=== PATIENT | male | born 1975 | race Caucasian/White ===

== ENCOUNTER 2020-07-20 17:11 | Emergency (ER) | payer MEDICAID, OTHER ==
--- NOTE | 2020-07-20 18:26 | EDM.PDOC ---
ED HPI GENERAL MEDICAL PROBLEM - General Chief Complaint: Abdominal Pain Stated Complaint: STOMACH PAIN Time Seen by Provider: 07/20/20 18:00 Source of Information: Reports: Patient History Limitations: Reports: No Limitations - History of Present Illness INITIAL COMMENTS - FREE TEXT/NARRATIVE: 44 yo male here with a hx of intermittent epigastric pain over the past couple of years. He had pain today before coming to the ER, but it is gone shortly after arrival. He took omeprazole this morning without relief. No antacids taken. He has had scattered work ups by a GI doctor in [place], and an ER doctor in [place]. He lives in [place] and has no primary care provider. Has a pHx of binge drinking, not lately. He is on a keto diet and has lost about 60#. Had a recent endoscopy in [place] that did not show anything. Is not sure of other tests that have been done, but doesn't think he's had a HIDA scan. Onset: Gradual Onset Date: 07/19/20 Duration: Day(s): (1+), Resolved Prior to Arrival Location: Reports: Abdomen Quality: Reports: Pressure Severity: Moderate Improves with: Reports: Other (time) Worsens with: Reports: Other (unknown) Context: Reports: Other (See HPI) Associated Symptoms: Reports: Nausea/Vomiting. Denies: Fever/Chills Treatments [employer]: Reports: Other (see below) (see HPI) Epigastric Pain Score (Numeric/FACES): 5 - Related Data Allergies Allergy/AdvReac Type Severity Reaction Status Date / Time No Known Allergies Allergy Verified 07/20/20 17:42 Home Meds: Home Meds Losartan Potassium 100 mg PO DAILY 07/20/20 [History] Varenicline [Chantix] 1 mg PO ASDIRECTED 07/20/20 [History] Past Medical History Musculoskeletal History: Reports: Fracture - Infectious Disease History Infectious Disease History: Reports: Chicken Pox, Hepatitis C - Past Surgical History HEENT Surgical History: Reports: Eye Surgery Musculoskeletal Surgical History: Reports: Other (See Below) Other Musculoskeletal Surgeries/Procedures:: Back surgery. Jaw Surgery Social & Family History - Tobacco Use Tobacco Use Status *Q: Never Tobacco User - Caffeine Use Caffeine Use: Reports: Coffee - Recreational Drug Use Recreational Drug Type: Reports: Marijuana/Hashish ED ROS GENERAL - Review of Systems Review Of Systems: See Below Constitutional: Reports: No Symptoms HEENT: Reports: No Symptoms Respiratory: Reports: No Symptoms Cardiovascular: Reports: No Symptoms Endocrine: Reports: No Symptoms GI/Abdominal: Reports: Abdominal Pain, Nausea, Vomiting. Denies: Black Stool, Bloody Stool, Constipation, Diarrhea, Distension, Flatus, Hematemesis, Hematochezia, Melena : Reports: No Symptoms Musculoskeletal: Reports: No Symptoms Skin: Denies: No Symptoms ED EXAM, GI/ABD - Physical Exam Exam: See Below Exam Limited By: No Limitations General Appearance: Alert, WD/WN, No Apparent Distress Eyes: Bilateral: Normal Appearance Ears: Normal External Exam, Normal Canal Nose: Normal Inspection, No Blood Throat/Mouth: Normal Inspection, Normal Lips, Normal Oropharynx, Normal Voice, No Airway Compromise Head: Atraumatic, Normocephalic Neck: Normal Inspection Respiratory/Chest: No Respiratory Distress, Lungs Clear, Normal Breath Sounds, No Accessory Muscle Use Cardiovascular: Regular Rate, Rhythm, No Edema GI/Abdominal Exam: Normal Bowel Sounds, Soft, Non-Tender, No Distention. No: Distended Back Exam: Normal Inspection. No: CVA Tenderness (R), CVA Tenderness (L) Extremities: Normal Inspection, Normal Range of Motion, Non-Tender, No Pedal Edema Neurological: Alert, Oriented, CN II-XII Intact, Normal Cognition, No Motor/Sensory Deficits Psychiatric: Normal Affect, Normal Mood Skin Exam: Warm, Dry, Intact, Normal Color, No Rash Course - Vital Signs Last Recorded V/S: Last Vital Signs Temp 36.8 C 07/20/20 17:43 Pulse 108 H 07/20/20 17:43 Resp 16 07/20/20 17:43 BP 141/94 H 07/20/20 17:43 Pulse Ox 98 07/20/20 17:43 Departure - Departure Time of Disposition: 18:30 Disposition: Home, Self-Care 01 Condition: Good Clinical Impression: Intermittent epigastric abdominal pain - Discharge Information *PRESCRIPTION DRUG MONITORING PROGRAM REVIEWED*: Not Applicable *COPY OF PRESCRIPTION DRUG MONITORING REPORT IN PATIENT EM: Not Applicable Referrals: PCP,None [Primary Care Provider] - Additional Instructions: Return for a scheduled outpatient HIDA scan, or as needed. It would be helpful to get your medical records for us to review. Omeprazole and other PPI's don't work used PRN, need to be taken regularly. Sepsis Event Note (ED) - Evaluation Sepsis Screening Result: No Definite Risk - Focused Exam Vital Signs: Vital Signs Temp Pulse Resp BP Pulse Ox 07/20/20 17:43 36.8 C 108 H 16 141/94 H 98 07/20/20 17:32 36.8 C 108 H 16 141/94 H 98
== END 2020-07-20 18:26 | disposition home or self-care (01) ==
LOC: JP.ED 17:11
DX: R10.13 Epigastric pain (principal); Z79.899 Other long term (current) drug therapy
CPT/HCPCS: 99283

== ENCOUNTER 2022-11-27 22:07 | Day surgery (SDC) | payer MEDICAID ==
[2022-11-27] MEDS ORDERED: Sodium Chloride 0.9% 10 ML Syringe FLUSH PRN (22:45)
[2022-11-27 23:07] LABS: BASOPHILS PERCENT AUTO 0.3 % (0.1-1.3); EOSINOPHILS ABSOLUTE AUTO 0.06 K/uL (0.00-0.40); HEMATOCRIT 22.3 % (38.4-49.7); HEMOGLOBIN 7.2 g/dL (12.9-16.9); IMMATURE GRAN ABSOLUTE AUTO 0.04 K/uL (0.00-0.23); IMMATURE GRAN PERCENT AUTO 0.7 % (0.0-0.7); LYMPHOCYTES ABSOLUTE AUTO 1.21 K/uL (0.8-3.3); MEAN CORPUSCULAR HEMOGLOBIN 30.4 pg (31.6-35.5); MEAN CORPUSCULAR HGB CONC 32.3 g/dL (31.6-35.5); MEAN CORPUSCULAR VOLUME 94.1 fL (81.4-99.0); MONOCYTES ABSOLUTE AUTO 0.33 K/uL (0.20-0.90); MONOCYTES PERCENT AUTO 5.5 % (3.3-12.6); NEUTROPHILS ABSOLUTE AUTO 4.38 K/uL (1.0-7.6); NEUTROPHILS PERCENT AUTO 72.5 % (40.0-78.1); PLATELET COUNT,PLT 223 K/uL (130-375); RED BLOOD CELL COUNT 2.37 M/uL (4.14-5.76)
[2022-11-27 23:11] LABS: BASOPHILS ABSOLUTE AUTO 0.02 K/uL (0.00-0.10)
[2022-11-27] MEDS ORDERED: Iopamidol 612 MG/ML 150 ML Bottle IV STA (23:16)
[2022-11-27] MEDS ORDERED: Sodium Chloride 0.9% 50 ML IV STA (23:16)
[2022-11-27 23:28] LABS: A/G RATIO 1.3 (1.2-2.2); ALANINE AMINOTRANSFERASE,ALT 40 U/L (12-78); ALBUMIN 3.1 g/dL (3.4-5.0); ALKALINE PHOSPHATASE 45 U/L (46-116); ANION GAP 6.3 mmol/L (5.0-14.0); ASPARTATE AMNIOTRANSFERASE,AST 26 U/L (15-37); BILIRUBIN TOTAL 0.2 mg/dL (0.2-1.0); BLOOD UREA NITROGEN,BUN 13 mg/dL (7-18); CALCIUM 8.5 mg/dL (8.5-10.1); CARBON DIOXIDE,CO2 30 mmol/L (21-32); CHLORIDE,CL 105 mmol/L (100-108); CREATININE 0.8 mg/dL (0.8-1.3); EST CRCL DRUG DOSING (CG) 140.77 mL/min; ESTIMATED GFR 108 mL/min (>60); GLUCOSE RANDOM 150 mg/dL (74-106); PROTEIN TOTAL,TP 5.5 g/dL (6.4-8.2); SODIUM,NA 141 mmol/L (140-148)
[2022-11-27 23:41] LABS: PROTHROMBIN TIME 10.1 sec (9.2-10.6); PTT,PARTIAL THROMBOPLSTIN TIME 20.6 sec (21.8-27.3)
[2022-11-27] MEDS ORDERED: Polyethylene Glycol 3350 Powder 238 GM Bot PO ONE (23:56)
[2022-11-28] MEDS ORDERED: Nicotine 14 MG/24 Hr Patch TRDERM SCH (00:45)
[2022-11-28] MEDS ORDERED: Pantoprazole 80 MG in Sodium Chloride 0.9% 100 ML IV ONE (07:21)
[2022-11-28] MEDS ORDERED: Dextrose 5%-Lactated Ringers 1,000 ML IV SCH (08:45)
[2022-11-28] MEDS ORDERED: Propofol 200 MG/20 ML SDV ONE ×2 (09:16→09:33)
[2022-11-28] MEDS ORDERED: fentaNYL 50 MCG/ML SDV ONE (09:21)
[2022-11-28] MEDS ORDERED: Midazolam 1 MG/ML 2 ML SDV ONE (09:22)
[2022-11-28 11:00] LABS: HEMATOCRIT 28.1 % (38.4-49.7); HEMOGLOBIN 9.2 g/dL (12.9-16.9)
== END 2022-11-28 15:20 ==
LOC: JP.ED 22:07 → JP.SDS 11-28 09:25 → JP.ED 11-28 15:20 → JP.SDS 11-28 15:20
PROVIDERS: ATTEND Surgery
DX: K92.2 Gastrointestinal hemorrhage, unspecified (principal); D62 Acute posthemorrhagic anemia; F17.210 Nicotine dependence, cigarettes, uncomplicated; Z79.82 Long term (current) use of aspirin; Z79.899 Other long term (current) drug therapy; Z79.891 Long term (current) use of opiate analgesic
CPT/HCPCS: 36415; 36430; 43239; 45378; 74177; 80053; 82272; 83605; 84484; 85014; 85018; 85025; 85610; 85730; 86850; 86900; 86901; 86920; 86922; 93005; 93010; 99285; A9270; C9113; J2250; J2704; J3010; J3490; J7121; P9016; Q9967